=== PATIENT | female | born 1950 | race Two or more races ===

== ENCOUNTER 2020-09-09 12:11 | Outpatient (CLI) | payer OTHER | END 2020-09-09 12:20 | disposition home or self-care (01) | LOC: RAD 12:11 | PROVIDERS: ATTEND Orthopaedic Surgery | DX: M79.672 Pain in left foot (principal); M79.671 Pain in right foot; S92.355A Nondisplaced fracture of fifth metatarsal bone, left foot, initial encounter for closed fracture; S92.354A Nondisplaced fracture of fifth metatarsal bone, right foot, initial encounter for closed fracture ==